=== PATIENT | female | born 1995 | race Caucasian/White ===

== ENCOUNTER 2021-11-01 05:36 | Inpatient (IN) | payer BC ==
[~2021-11-01] VITALS: Ht 180.3 cm; Wt 133.8 kg
[2021-11-01 07:09] LABS: HEMOGLOBIN 9.9 gm/dl (12.3-15.3); RED BLOOD COUNT 4.99 M/UL (4.00-5.10)
[2021-11-01 07:30] LABS: BUN/CREATININE RATIO 13 (0-10)
[2021-11-01] MEDS ORDERED: IBUPROFEN600 MG PO (08:34)
[2021-11-01] MEDS ORDERED: HYDROCODON-ACE1 EAC6 PO ×2 (08:34→08:38)
[2021-11-01] MEDS ORDERED: COLACE 100MG C100 MG PO (08:34)
== END 2021-11-02 20:20 | disposition home or self-care (01) | DRG 786 ==
LOC: OB 05:36
PROVIDERS: ADMIT Obstetrics & Gynecology
PROC: 4A1HXCZ Monitoring of Products of Conception, Cardiac Rate, External Approach (ICD-10-PCS; 2021-11-01)
PROC: 3E0234Z Introduction of Serum, Toxoid and Vaccine into Muscle, Percutaneous Approach (ICD-10-PCS; 2021-11-01)
PROC: 10D00Z1 Extraction of Products of Conception, Low, Open Approach (ICD-10-PCS; principal; 2021-11-01 07:30)
DX: O24.420 Gestational diabetes mellitus in childbirth, diet controlled (principal); U07.1 COVID-19; O98.52 Other viral diseases complicating childbirth; Z3A.38 38 weeks gestation of pregnancy; Z37.0 Single live birth; O69.81X0 Labor and delivery complicated by cord around neck, without compression, not applicable or unspecified; O34.211 Maternal care for low transverse scar from previous cesarean delivery; O99.214 Obesity complicating childbirth; E66.9 Obesity, unspecified; Z87.09 Personal history of other diseases of the respiratory system; Z87.891 Personal history of nicotine dependence; Z83.3 Family history of diabetes mellitus; Z82.49 Family history of ischemic heart disease and other diseases of the circulatory system; Z80.9 Family history of malignant neoplasm, unspecified; Z23 Encounter for immunization
CPT/HCPCS: 36415; 80053; 81001; 82800; 82962; 85014; 85018; 85025; C9113; J0690; J1170; J2405; J2590; J7030; J7120

== ENCOUNTER 2022-02-13 10:30 | Emergency (ER) | payer BC ==
[~2022-02-13 10:30] MED LIST: COLACE 100MG C100 MG PO; HYDROCODON-ACE1 EAC6 PO; IBUPROFEN600 MG PO
[2022-02-13 12:56] LABS: HEMOGLOBIN 11.2 gm/dl (12.3-15.3); RED BLOOD COUNT 5.32 M/UL (4.00-5.10); WHITE BLOOD COUNT 11.2 K/UL (4.5-11.0)
[2022-02-13 13:21] LABS: BUN/CREATININE RATIO 17 (0-10)
[2022-02-13] MEDS ORDERED: PEPCID40 MG PO (13:50)
== END 2022-02-13 14:24 | disposition home or self-care (01) ==
LOC: ER1 10:30
PROVIDERS: Emergency Medicine
DX: R07.81 Pleurodynia (principal); K21.9 Gastro-esophageal reflux disease without esophagitis; F17.210 Nicotine dependence, cigarettes, uncomplicated
CPT/HCPCS: 71045; 80053; 82550; 82553; 83690; 84439; 84443; 84484; 84703; 85025; 85379; 93005; 99285